=== PATIENT | female | born 1970 | race Caucasian/White ===

== ENCOUNTER 2023-11-30 11:37 | Outpatient (OUT) | payer MEDICARE, SELFPAY ==
[2023-11-30 12:14] LABS: Creatinine Urine Random 53.42 mg/dL (20.00-300.00); Microalbum Creatinine Ratio Ur 273.3 mg/g (0.0-29.9); Microalbumin Urine Random 14.6 mg/dL (<=30.0)
[2023-11-30 12:34] LABS: Basophils Absolute Auto 0.1 10^3/uL (0.0-0.1); Basophils Percent Auto 0.9 % (0.2-2.0); Eosinophils Absolute Auto 0.1 10^3/uL (0.0-0.7); Hematocrit 45.7 % (36.0-48.0); Hemoglobin 15.1 g/dL (12.0-16.0); Immature Granulocytes Abs Auto 0.02 10^3/uL (0.00-0.03); Immature Granulocytes Pct Auto 0.3 % (0.0-0.5); Lymphocytes Absolute Auto 2.5 10^3/uL (1.2-3.8); Mean Corpuscular Hemoglobin 28.1 pg (26.7-34.0); Mean Corpuscular Volume 84.9 fL (81.0-99.0); Mean Platelet Volume 11.4 fL (9.5-13.5); Monocytes Absolute Auto 0.7 10^3/uL (0.3-0.8); Monocytes Percent Auto 9.3 % (1.7-12.0); Neutrophils Absolute Auto 4.2 10^3/uL (1.4-6.5); Neutrophils Percent Auto 55.5 % (43.0-75.0); Platelet Count 336 10^3/uL (150-450); Red Blood Count 5.38 10^6/uL (4.20-5.40); Red Cell Distribution Width 13.6 % (11.0-15.0); White Blood Count 7.6 10^3/uL (4.0-11.0)
[2023-11-30 13:06] LABS: Estimated Average Glucose 292 mg/dL; Glycohemoglobin A1C 11.8 % (4.5-6.2)
[2023-11-30 13:41] LABS: Bilirubin Urine NEGATIVE (NEGATIVE); Blood Urine NEGATIVE (NEGATIVE); Clarity Urine CLOUDY (CLEAR); Color Urine LT. YELLOW (YELLOW); Glucose Urine UA >=1000 mg/dL (NEGATIVE); Ketones Urine TRACE mg/dL (NEGATIVE); Leukocyte Esterase Urine NEGATIVE (NEGATIVE); Nitrite Urine NEGATIVE (NEGATIVE); Protein Urine TRACE mg/dL (NEG/TRACE); Urobilinogen Urine 0.2 EU/dL (0.2-1.0); pH Urine 5.5 (5.0-9.0)
[2023-11-30 13:44] LABS: Alanine Aminotransferase 31 U/L (14-59); Albumin Globulin Ratio 0.8; Albumin Level 3.8 g/dL (3.4-5.0); Alkaline Phosphatase 142 U/L (46-116); Anion Gap 15.5; Aspartate Amino Transferase 13 U/L (15-37); BUN Creatinine Ratio 12.7; Bilirubin Total 0.5 mg/dL (0.2-1.0); Calcium 9.4 mg/dL (8.5-10.1); Carbon Dioxide 24.2 mmol/L (21.0-32.0); Chloride 98 mmol/L (98-107); Chol HDL Ratio 7.5; Cholesterol 415 mg/dL (<=200); Estimated GFR (African America >60 (>=60); Estimated GFR (Non-African Ame >60 (>=60); Globulin 4.5 g/dL; Glucose 335 mg/dL (74-106); HDL Cholesterol 55 mg/dL (40-60); Potassium 3.7 mmol/L (3.5-5.1); Sodium 134 mmol/L (136-145); Thyroid Stimulating Hormone 1.077 uIU/mL (0.358-3.740); Total Protein 8.3 g/dL (6.4-8.2); Triglycerides 237 mg/dL (<=150); VLDL CHOLESTEROL 47.4 mg/dL
[2023-11-30 13:46] LABS: Urine Microscopic Indicated NO
[2023-11-30 14:16] LABS: Free T4 1.16 ng/dL (0.76-1.46)
== END 2023-11-30 11:38 | disposition home or self-care (01) ==
LOC: LAB 11:42
PROVIDERS: PCP Nurse Practitioner; Visit Provider Nurse Practitioner
DX: R53.83 Other fatigue (principal); I10 Essential (primary) hypertension; E66.3 Overweight; R35.89 Other polyuria; R63.1 Polydipsia
CPT/HCPCS: 36415; 80053; 80061; 81003; 82043; 82570; 83036; 84439; 84443; 85025

== ENCOUNTER 2024-05-12 11:03 | Outpatient (OUT) | payer MEDICARE, MEDICAID, SELFPAY ==
--- NOTE | 2024-05-12 | MM_ITS ---
Patient Name: OLEG MARTINEZ MR#: [id number] : 1970 Exam Date: 05/12/2024 Ordering Doctor: MADI Porras CNP RADIOLOGY REPORT PROCEDURE: MM SCREENING MAMMO BI COMPARISON: None. INDICATIONS: SCREENING Calculator Name NCI Breast Cancer Risk Assessment Tool 5 Year Breast Cancer Risk Not Reported. Lifetime Breast Cancer Risk Not Reported. Personal Breast Cancer No Personal Ovarian Cancer No Treatments None Family Cancers None LOCATION: [facility] BREAST COMPOSITION: There are scattered areas of fibroglandular density. FINDINGS: DIAGNOSTIC CATEGORY 1--NEGATIVE. NO CHANGE FROM COMPARISON ASSESSMENT. Scattered benign-appearing calcifications are present. RIGHT BREAST: No significant suspicious finding. LEFT BREAST: No significant suspicious finding. RECOMMENDATIONS: ROUTINE MAMMOGRAM AND CLINICAL EVALUATION IN 12 MONTHS. PLEASE NOTE: A NORMAL MAMMOGRAM DOES NOT EXCLUDE THE POSSIBILITY OF BREAST CANCER. A CLINICALLY SUSPICIOUS PALPABLE LUMP SHOULD BE BIOPSIED. Dictated by: Jose Delcid MD on 05/12/2024 at 13:12 Approved by: Jose Delcid MD on 05/12/2024 at 13:13
[2024-05-12 12:10] LABS: Estimated Average Glucose 120 mg/dL; Glycohemoglobin A1C 5.8 % (4.5-6.2)
[2024-05-12 12:20] LABS: Alanine Aminotransferase 33 U/L (14-59); Albumin Level 4.1 g/dL (3.4-5.0); Alkaline Phosphatase 106 U/L (46-116); Anion Gap 11.5; Aspartate Amino Transferase 18 U/L (15-37); BUN Creatinine Ratio 14.5; Bilirubin Total 0.4 mg/dL (0.2-1.0); Calcium 9.3 mg/dL (8.5-10.1); Carbon Dioxide 28.5 mmol/L (21.0-32.0); Chloride 100 mmol/L (98-107); Chol HDL Ratio 2.9; Cholesterol 178 mg/dL (<=200); Estimated GFR (African America >60 (>=60); Estimated GFR (Non-African Ame >60 (>=60); Globulin 4.2 g/dL; Glucose 121 mg/dL (74-106); HDL Cholesterol 61 mg/dL (40-60); Sodium 136 mmol/L (136-145); Total Protein 8.3 g/dL (6.4-8.2); Triglycerides 81 mg/dL (<=150); VLDL CHOLESTEROL 16.2 mg/dL
== END 2024-05-12 11:04 | disposition home or self-care (01) ==
LOC: MAMMO 11:06
PROVIDERS: PCP Nurse Practitioner; Visit Provider Nurse Practitioner
DX: Z12.31 Encounter for screening mammogram for malignant neoplasm of breast (principal); E78.2 Mixed hyperlipidemia; I10 Essential (primary) hypertension
CPT/HCPCS: 36415; 77067; 80053; 80061; 83036

== ENCOUNTER 2024-11-02 16:03 | Outpatient (OUT) | payer MEDICARE, MEDICAID, SELFPAY ==
--- OUTSIDE RECORDS SUMMARY | 2024-11-02 16:10 | XMS_ITS | CCD ---
Author Organization [facility] Care Team Providers Care Field Training Manager Name Role Phone Chiquita COAT HANGER SHAPER MACHINE OPERATOR, Cecelia Unavailable Ruben Ramirez MD Primary Care Provider AICHMARILIA, CECELIA Attending Unavailable AICHHOLZ, CECELIA Attending Unavailable AICHHOLZ, CECELIA Attending Unavailable AICHHOLZ, CECELIA Attending Unavailable AICHHOLZ, CECELIA Attending Unavailable AICHHOLZ, CECELIA Attending Unavailable Medications Current Medications Medication Drug Class(es) Dates Sig (Normalized) Sig (Original) atorvastatin 20 mg oral tablet (18 sources) HMG-CoA Reductase Inhibitor Start: 02-13-2024 End: 11-08-2024 take 1 tablet by mouth at bedtime atorvastatin (Lipitor) 20 MG tablet Indications: Type 2 diabetes mellitus without complication, without long-term current use of insulin (CMS/HCC) , Mixed hyperlipidemia (CMS/HCC) Take 1 tablet (20 mg) by mouth at bedtime 30 tablet 04/20/2024 05/20/2024 Active Continuous Glucose Pipeline Executive (Dexcom G7 Pipeline Executive) device (14 sources) Start: 01-07-2024 Continuous Glucose Pipeline Executive (Dexcom G7 Pipeline Executive) device Indications: Type 2 diabetes mellitus without complication, without long-term current use of insulin (CMS/HCC) 1 each Daily 1 each 1 01/07/2024 Active Continuous Glucose Sensor (Dexcom G7 Sensor) misc (16 sources) Start: 08-10-2024 Continuous Glucose Sensor (Dexcom G7 Sensor) misc Indications: Type 2 diabetes mellitus without complication, without long-term current use of insulin (CMS/HCC) 1 each Daily 3 each 11 08/10/2024 Active Start: 01-07-2024 End: 08-10-2024 Continuous Glucose Sensor (D excom G7 Sensor) misc Indications: Type 2 diabetes mellitus without complication, without long-term current use of insulin (CMS/HCC) 1 each Daily 3 each 11 01/07/2024 08/10/2024 Discontinued (Reorder) Start: 01-07-2024 Continuous Glu cose Sensor [place]Dexcom G7 Sensor[place] [facility] [place]: Type 2 diabetes mellitus without complication, without long-term current use of insulin (CMS/HCC) 1 each Daily 3 each 01/07/2024 Active losartan potassium 50 mg oral tablet (17 sources) Angiotensin 2 Receptor Juan Start: 04-20-2024 End: 11-08-2024 take 1 tablet by mouth once daily losartan (Cozaar) 50 MG tablet Indications: Primary hypertension (CMS/HCC) Take 1 tablet (50 mg) by mouth Daily 90 tablet 04/23/2024 07/22/2024 Active metFORMIN hydrochloride 1000 mg oral tablet (16 sources) Biguanide Start: 08-10-2024 End: 11-08-2024 take 1 tablet by mouth in the morning metFORMIN (Glucophage) 1000 MG tablet Indications: Type 2 diabetes mellitus without complication, without long-term current use of insulin (CMS/HCC) Take 1 tablet (1,000 mg) by mouth in the morning and 1 tablet (1,000 mg) in the evening. Take with meals. 180 tablet 1 08/10/2024 11/08/2024 Active Start: 01-07-2024 End: 08-10-2024 take 2 tablets by mouth in the morning metFORMIN (Glucophage) 500 MG tablet Indications: Type 2 diabetes mellitus without complication, without long-term current use of insulin (CMS/HCC) Take 2 tablets (1,000 mg) by mouth in the morning and 2 tablets (1,000 mg) in the evening. Take with meals. 360 tablet 04/20/2024 07/19/2024 Active Completed/Discontinued Medications Medication Drug Class(es) Dates Sig (Normalized) Sig (Original) dapagliflozin 5 mg oral tablet (17 sources) Sodium-Glucose Cotransporter 2 Inhibitor Start: 04-20-2024 End: 11-08-2024 take 1 tablet by mouth once daily dapagliflozin (Farxiga) 5 MG Indications: Type 2 diabetes mellitus without complication, without long-term current use of insulin (CMS/HCC) Take 1 tablet (5 mg) by mouth Daily 90 tablet 1 07/24/2024 08/10/2024 Discontinued (Reorder) Problems Active Problems Problem Classification Problem Date Documented Da te Episodic/Chronic Diabetes mellitus without complication (20 sources) Type 2 diabetes mellitus without complication; Translations: [Type 2 diabetes mellitus without complications] Onset: 12-04-2023 07-07-2024 Chronic Disorders of lipid metabolism (19 sources) Mixed hyperlipidemia; Translations: [Mixed hyperlipidemia] Onset: 12-04-2023 07-07-2024 Chronic Essential hypertension (20 sources) Essential hypertension; Translations: [Essential (primary) hypertension] Onset: 10-30-2023 10-30-2023 Chronic Other nutritional; endocrine; and metabolic disorders (18 sources) Body mass index 25-29 - overweight; Translations: [Overweight] Onset: 10-30-2023 10-30-2023 Episodic Past or Other Problems Problem Classification Problem Date Documented Da te Episodic/Chronic Genitourinary symptoms and ill-defined conditions (14 sources) Polyuria; Translations: [Polyuria] Onset: 10-30-2023 Resolved: 08-10-2024 10-30-2023 Episodic Malaise and fatigue (14 sources) Fatigue; Translations: [Other fatigue] Onset: 10-30-2023 Resolved: 08-10-2024 10-30-2023 Episodic Mood disorders (14 sources) Mood disorders Onset: 02-18-2024 02-18-2024 Other nutritional; endocrine; and metabolic disorders (14 sources) Excessive thirst; Translations: [Polydipsia] Onset: 10-30-2023 Resolved: 08-10-2024 10-30-2023 Episodic Other screening for suspected conditions (not mental disorders or infectious disease) (20 sources) Patient encounter status; Translations: [Encounter for screening mammogram for malignant neoplasm of breast] Onset: 12-04-2023 12-04-2023 Episodic Results Test Name Value Interpretation Reference Range Facil ity MLR HEMOGLOBIN A1Con 17-2 024 Glucose [Mass/Vol] 120 mg/dL [facility] HbA1c (Bld) [Mass fraction] 5.8 % 4.5 - 6.2 % [facility] Comment on above: ADA RECOMMENDED LIMI T 4.0 - 6.0 ADA THERAPEUTIC TARGET < 7.0 ACTION SUGGESTED > 7.0 [facility] Vital Signs Date Time Vital Sign Value Performing Clinician Faci lity 08-10-2024 15:23-0500 Body height 164.5 cm Cecelia Bonez COAT HANGER SHAPER MACHINE OPERATOR Work Phone: [facility] 08-10-2024 15:23-0500 Body mass index (BMI) [Ratio] 25.52 kg/m2 Cecelia Bonitahholz COAT HANGER SHAPER MACHINE OPERATOR Work Phone: [facility] 08-10-2024 15:23-0500 Body temperature 97.81 [degF] Cecelia Bonitahholz COAT HANGER SHAPER MACHINE OPERATOR Work Phone: [facility] 08-10-2024 15:23-0500 Body weight 69.04 kg Cecelia Bonitahholz COAT HANGER SHAPER MACHINE OPERATOR Work Phone: [facility] 08-10-2024 15:23-0500 Diastolic blood pressure 88 mm[Hg] Cecelia Bonitahholz COAT HANGER SHAPER MACHINE OPERATOR Work Phone: [facility] 08-10-2024 15:23-0500 Heart rate 96 /min Cecelia Bonitahholz COAT HANGER SHAPER MACHINE OPERATOR Work Phone: [facility] 08-10-2024 15:23-0500 Respiratory rate 18 /min Cecelia Aichholz COAT HANGER SHAPER MACHINE OPERATOR Work Phone: [facility] 08-10-2024 15:23-0500 SaO2% (BldA) [Mass fraction] 97 % Cecelia Bonitahholz COAT HANGER SHAPER MACHINE OPERATOR Work Phone: [facility] 08-10-2024 15:23-0500 Systolic blood pressure 110 mm[Hg] Cecelia Gonzalezholz COAT HANGER SHAPER MACHINE OPERATOR Work Phone: [facility] 05-19-2024 14:39-0400 Body height 164.5 cm Cecelia Bonitahholz COAT HANGER SHAPER MACHINE OPERATOR Work Phone: [facility] 05-19-2024 14:39-0400 Body mass index (BMI) [Ratio] 26.29 kg/m2 Cecelia Bonitahholz COAT HANGER SHAPER MACHINE OPERATOR Work Phone: [facility] 05-19-2024 14:39-0400 Body temperature 98.1 [degF] Cecelia Bonitahholz COAT HANGER SHAPER MACHINE OPERATOR Work Phone: [facility] 05-19-2024 14:39-0400 Body weight 71.12 kg Cecelia Aichholz COAT HANGER SHAPER MACHINE OPERATOR Work Phone: [facility] 05-19-2024 14:39-0400 Diastolic blood pressure 80 mm[Hg] Cecelia Aichholz COAT HANGER SHAPER MACHINE OPERATOR Work Phone: [facility] 05-19-2024 14:39-0400 Heart rate 100 /min Cecelia Aichholz COAT HANGER SHAPER MACHINE OPERATOR Work Phone: [facility] 05-19-2024 14:39-0400 Respiratory rate 18 /min Cecelia Aichholz COAT HANGER SHAPER MACHINE OPERATOR Work Phone: [facility] 05-19-2024 14:39-0400 SaO2% (BldA) [Mass fraction] 96 % Cecelia Aichholz COAT HANGER SHAPER MACHINE OPERATOR Work Phone: [facility] 05-19-2024 14:39-0400 Systolic blood pressure 132 mm[Hg] Cecelia Aichholz COAT HANGER SHAPER MACHINE OPERATOR Work Phone: [facility] Healthcare Encounters Encounter Date Encounter Type Care Provider Facility Start: 08-10-2024 End: 08-10-2024 Office outpatient visit 25 minutes Cecelia Bonitahholz COAT HANGER SHAPER MACHINE OPERATOR Work Phone: [facility] Comment on above: Type 2 diabetes evan itus without complication, without long- term current use of insulin ([facility]) (Primary Dx); Primary hypertension ([facility]); Overweight (BMI 25.0-29.9); Mixed hyperlipidemia ([facility]/HCC) Start: 08-10-2024 End: 08-10-2024 ambulatory CECELIA AICHHOLZ Not Available Start: 08-10-2024 End: 08-10-2024 Bamboo flowsheet Cecelia Aichholz COAT HANGER SHAPER MACHINE OPERATOR Work Phone: [facility] Start: 08-10-2024 End: 08-10-2024 Bamboo flowsheet Cecelia Aichholz COAT HANGER SHAPER MACHINE OPERATOR Work Phone: [facility] Start: 07-23-2024 End: 07-24-2024 Refill Cecelia Aichholz COAT HANGER SHAPER MACHINE OPERATOR Work Phone: [facility] Comment on above: Type 2 diabetes evan itus without complication, without long- term current use of insulin (CMS/HCC) Start: 07-07-2024 End: 07-07-2024 Refill Samantha Luis Felipe PATEL [facility] Comment on above: Type 2 diabetes evan itus without complication, without long- term current use of insulin (CMS/HCC); Mixed hyperlipidemia ([facility]/HCC) Start: 05-25-2024 End: 05-25-2024 Refill Cecelia Aichholz COAT HANGER SHAPER MACHINE OPERATOR Work Phone: [facility] Comment on above: Type 2 diabetes evan itus without complication, without long- term current use of insulin ([facility]); Mixed hyperlipidemia ([facility]) Start: 05-19-2024 End: 05-19-2024 Office outpatient visit 25 minutes Cecelia Aichholz COAT HANGER SHAPER MACHINE OPERATOR Work Phone: [facility] Comment on above: Type 2 diabetes evan itus without complication, without long- term current use of insulin ([facility]) (Primary Dx); Overweight (BMI 25.0-29.9); Primary hypertension ([facility]) Start: 05-19-2024 End: 05-19-2024 ambulatory CECELIA AICHHOLZ Not Available Start: 05-19-2024 End: 05-19-2024 Bamboo flowsheet Cecelia Aichholz COAT HANGER SHAPER MACHINE OPERATOR Work Phone: [facility] Start: 05-19-2024 End: 05-19-2024 Bamboo flowsheet Cecelia Aichholz COAT HANGER SHAPER MACHINE OPERATOR Work Phone: [facility] Start: 05-12-2024 End: 05-12-2024 Clinisync Result Encounter Cecelia Aichholz COAT HANGER SHAPER MACHINE OPERATOR Work Phone: [facility] External Department Unsolicited Start: 05-12-2024 End: 05-12-2024 Clinisync Result Encounter Cecelia Aichholz COAT HANGER SHAPER MACHINE OPERATOR Work Phone: [facility] External Department Unsolicited Start: 04-23-2024 End: 04-23-2024 Refill Cecelia Aichholz COAT HANGER SHAPER MACHINE OPERATOR Work Phone: [facility] Comment on above: Primary hypertension (CMS/HCC) Start: 04-20-2024 End: 04-20-2024 Refill Cecelia Aichholz COAT HANGER SHAPER MACHINE OPERATOR Work Phone: [facility] Comment on above: Type 2 diabetes evan itus without complication, without long- term current use of insulin ([facility]/HCC); Mixed hyperlipidemia ([facility]/HCC) Start: 04-20-2024 End: 04-20-2024 Refill Cecelia Aichholz COAT HANGER SHAPER MACHINE OPERATOR Work Phone: [facility] Comment on above: Type 2 diabetes evan itus without complication, without long- term current use of insulin ([facility]/HCC) Start: 04-18-2024 End: 04-20-2024 Refill Cecelia Aichholz COAT HANGER SHAPER MACHINE OPERATOR Work Phone: [facility] Comment on above: Primary hypertension ([facility]/HCC); Type 2 diabetes mellitus without complication, without long-term current use of insulin ([facility]) Start: 02-18-2024 Patient encounter procedure Cecelia Aichholz COAT HANGER SHAPER MACHINE OPERATOR Work Phone: [facility] Start: 02-18-2024 End: 02-18-2024 ambulatory CECELIA AICHHOLZ Not Available Start: 01-07-2024 End: 01-07-2024 ambulatory CECELIA AICHHOLZ Not Available Start: 12-04-2023 End: 12-04-2023 ambulatory CECELIA AICHHOLZ Not Available Start: 10-30-2023 End: 10-30-2023 ambulatory CECELIA AICHHOLZ Not Available Procedures Date Procedure Procedure Detail Performing Clinician Start: 05-12-2024 MLR HEMOGLOBIN A1C Cecelia Aichholz COAT HANGER SHAPER MACHINE OPERATOR Work Phone: Start: 05-12-2024 Mammography Cecelia Aichh olz COAT HANGER SHAPER MACHINE OPERATOR Work Phone: Plan of Treatment Date Care Activity Detail Author Start: 03-08-2027 Screening for malign ant neoplasm of colon [facility] Start: 05-12-2025 Screening for malign ant neoplasm of breast Mammogram [facility] Start: 02-17-2025 Medicare Annual Well ness (AWV) Medicare Annual Wellness (AWV) [facility] Start: 11-29-2024 Urine screening for protein Diabetes: Urine Protein Screening [facility] Start: 08-10-2024 End: 08-10-2024 Patient encounter procedure [facility] Comment on above: Primary hypertension ([facility]) (Primary Dx); Overweight (BMI 25.0-29.9); Type 2 diabetes mellitus without complication, without long-term current use of insulin ([facility]/HCC) Start: 08-10-2024 End: 08-10-2025 Hemoglobin A1c/Hemoglobin.total in Blood Hemoglobin A1c Lab Routine Type 2 diabetes mellitus without complication, without long-term current use of insulin ([facility]) Expected: 08/10/2024 (Approximate), Expires: 08/10/2025 [facility] Work Phone: Comment on above: Expected: 08/10/2024 (Approximate), Expires: 08/10/2025 Start: 05-19-2024 End: 05-19-2024 [facility] Comment on above: Arrived Start: 2008 Screening for malign ant neoplasm of breast Mammogram [facility] Start: 1998 Screening for malign ant neoplasm of cervix [facility] Start: 1989 Screening for malign ant neoplasm of cervix Pap Smear [facility] Start: 1978 Glaucoma screening Diabetes: R etinopathy Screening [facility] Start: 1968 Hemoglobin A1c measurement Diabetes: Hemoglobin A1C [facility] Start: 1968 Screening for malign ant neoplasm of colon [facility] Payers Date Payer Category Payer Medicaid [id number] 2023 Medicaid [id number] 2023 Medicare [id number] 2023 Medicare [id number] 1968 Unknown [id number] 1968 Unknown [id number] 1968 Unknown [id number] 1968 Unknown [id number] 1968 Unknown [id number] Social History Date Type Detail Facility Start: 10-30-2023 Tobacco smoking stat [facility] Never smoked tobacco [facility] Start: 10-30-2023 Tobacco use and exposure Smoke less tobacco non-user [facility] Start: 02-18-2024 End: 05-19-2024 Alcoholic beverage intake Lifetime non-drinker (finding) [facility] Start: 02-18-2024 End: 05-19-2024 History of Social function [facility] Start: 02-18-2024 End: 05-19-2024 Tobacco use panel [facility] Start: 10-21-2023 Alcohol Comment caffine: 2 cups michelle y [facility] Start: 1970 [place] assigned at Not on file [place] [facility] Clinical Notes 05-19-2024 to 08-10-2024 Cecelia Porras NP - 08/10/2024 3:00 PM Elizabeth Porras NP - 08/10/2024 7:43 AM ESTCecelia Porras NP - 08/10/2024 7:42 AM ESTPatient Pawan Porras NP - 05/19/2024 3:11 PM EDT Note Date & Type Note Facility 08-10-2024 History of Presen t illness Narrative Images from the original note were not included. Oleg Martinez is a 53 y.o. female presents with chief complaint of Diabetes HPI: Diabetes She presents for her follow-up diabetic visit. She has type 2 diabetes mellitus. Her disease course has been stable. There are no hypoglycemic associated symptoms. Pertinent negatives for hypoglycemia include no dizziness, headaches, nervousness/anxiousness, seizures or tremors. Pertinent negatives for diabetes include no blurred vision, no chest pain, no fatigue, no foot paresthesias, no polydipsia, no polyphagia, no polyuria, no visual change and no weight loss. There are no hypoglycemic complications. Symptoms are improving. There are no diabetic complications. Pertinent negatives for diabetic complications include no CVA, PVD or retinopathy. Risk factors for coronary artery disease include diabetes mellitus, dyslipidemia, obesity, hypertension and sedentary lifestyle. Current diabetic treatment includes oral agent (dual therapy). She is compliant with treatment all of the time. Her weight is stable. Her overall blood glucose range is 110-130 mg/dl. An SEB inhibitor/angiotensin II receptor juan is being taken. She does not see a race relations adviser.Eye exam is not current. Hypertension This is a chronic problem. The current episode started more than 1 year ago. The problem is unchanged. The problem is controlled. Pertinent negatives include no blurred vision, chest pain, headaches, palpitations, peripheral edema or shortness of breath. There are no associated agents to hypertension. Risk factors for coronary artery disease include diabetes mellitus and sedentary lifestyle. Past treatments include angiotensin blockers. The current treatment provides significant improvement. There are no compliance problems. There is no history of angina, kidney disease, CAD/NV, CVA, heart failure, left ventricular hypertrophy, PVD or retinopathy. SUBJECTIVE: MEDICATIONS: Current Outpatient Medications Medication Instructions atorvastatin (LIPITOR) 20 mg, Oral, Nightly Continuous Glucose Pipeline Executive (Dexcom G7 Pipeline Executive) device 1 each, Does not apply, Daily Continuous Glucose Sensor (Dexcom G7 Sensor) misc 1 each, Does not apply, Daily dapagliflozin (FARXIGA) 5 mg, Oral, Daily losartan (COZAAR) 50 mg, Oral, Daily metFORMIN (GLUCOPHAGE) 1,000 mg, Oral, 2 times daily with meals ALLERGIES: No Known Allergies REVIEW OF SYMPTOMS: Review of Systems Constitutional: Negative for appetite change, chills, fatigue, fever and weight loss. HENT: Negative for congestion, ear pain and sore throat. Eyes: Negative for blurred vision, pain, discharge, redness and visual disturbance. Respiratory: Negative for cough, shortness of breath and wheezing. Cardiovascular: Negative for chest pain, palpitations and leg swelling. Gastrointestinal: Negative for abdominal pain, blood in stool, constipation, diarrhea, nausea and vomiting. Genitourinary: Negative for difficulty urinating, dysuria and frequency. Musculoskeletal: Negative for arthralgias, back pain, joint swelling and myalgias. Skin: Negative for rash and wound. Neurological: Negative for dizziness, tremors, seizures, syncope and headaches. Psychiatric/Behavioral: Negative for behavioral problems, self-injury and suicidal ideas. The patient is not nervous/anxious. Hematological: Does not bruise/bleed easily. Endocrine: Negative for polydipsia, polyphagia and polyuria. Allergic/Immunologic: Negative for environmental allergies and food allergies. PAST MEDICAL HISTORY Past Medical History: Diagnosis Date Frequent headaches History reviewed. No pertinent surgical history. family history includes Diabetes in her maternal grandmother and mother; Heart disease in her mother; Hypertension in her maternal grandmother and mother. OBJECTIVE: Visit Vitals BP 110/88 (BP Location: Left arm, Patient Position: Sitting, BP Cuff Size: Adult long) Pulse 96 Temp 97.8 F (Temporal) Resp 18 Ht 5' 4.75 Wt 152 lb 3.2 oz SpO2 97% BMI 25.52 kg/m Smoking Status Never BSA 1.78 m Physical Exam Vitals and nursing note reviewed. Constitutional: General: She is not in acute distress. Appearance: Normal appearance. HENT: Head: Normocephalic and atraumatic. Right Ear: External ear normal. Left Ear: External ear normal. Nose: Nose normal. Mouth/Throat: Mouth: Mucous membranes are moist. Eyes: Extraocular Movements: Extraocular movements intact. Conjunctiva/sclera: Conjunctivae normal. Neck: Vascular: No carotid bruit. Cardiovascular: Rate and Rhythm: Normal rate and regular rhythm. Pulses: Normal pulses. Heart sounds: Normal heart sounds. Pulmonary: Effort: Pulmonary effort is normal. Breath sounds: Normal breath sounds. Abdominal: General: Bowel sounds are normal. There is no distension. Palpations: Abdomen is soft. There is no mass. Tenderness: There is no abdominal tenderness. Musculoskeletal: General: Normal range of motion. Cervical back: Normal range of motion and neck supple. Right lower leg: No edema. Left lower leg: No edema. Skin: General: Skin is warm and dry. Capillary Refill: Capillary refill takes 2 to 3 seconds. Findings: No rash. Neurological: General: No focal deficit present. Mental Status: She is alert and oriented to person, place, and time. Psychiatric: Mood and Affect: Mood normal. Behavior: Behavior normal. Thought Content: Thought content normal. Judgment: Judgment normal. ASSESSMENT AND PLAN: Follow up in about 3 months (around 11/08/2024) for Recheck. Problem List Items Addressed This Visit Primary hypertension ([facility]) Please check blood pressure daily and record DASH diet Limit caffeine Take medication as directed Contact office if chest pain, pressure, dizziness, shortness of breath, swelling legs Recommend slow position changes Current med: arb Relevant Medications losartan (Cozaar) 50 MG tablet Overweight (BMI 25.0-29.9) Type 2 diabetes mellitus without complication, without long-term current use of insulin ([facility]) - Primary Check blood sugars daily, notify if <70 or >200. Take medications (pills or insulin) as directed. Monitor for s/s of hypoglycemia (sweaty, dizziness, nausea, vomiting, or shakiness). Watch for increase in thirst, urination, or appetite. Inspect feet frequently monitoring for open wounds , and also recommend yearly eye exam. Pt should attempt to remain as physically active as chronic conditions allow, as well as trying to follow a diet low in carbohydrates, and simple sugars. Current meds: statin, arb, farxiga and metformin A1c order given Occ low sugar: range high 60's, usually during eating dinner time-likely related to inaccuracy in sensor Relevant Medications atorvastatin (Lipitor) 20 MG tablet Continuous Glucose Sensor (Dexcom G7 Sensor) misc dapagliflozin (Farxiga) 5 MG metFORMIN (Glucophage) 1000 MG tablet Other Relevant Orders Hemoglobin A1c Mixed hyperlipidemia ([facility]) Relevant Medications atorvastatin (Lipitor) 20 MG tablet Associated Problem(s): Type 2 diabetes mellitus without complication, without long-term current use of insulin ([facility]) Check blood sugars daily, notify if <70 or >200. Take medications (pills or insulin) as directed. Monitor for s/s of hypoglycemia (sweaty, dizziness, nausea, vomiting, or shakiness). Watch for increase in thirst, urination, or appetite. Inspect feet frequently monitoring for open wounds , and also recommend yearly eye exam. Pt should attempt to remain as physically active as chronic conditions allow, as well as trying to follow a diet low in carbohydrates, and simple sugars. Current meds: statin, arb, farxiga and metformin A1c order given Occ low sugar: range high 60's, usually during eating dinner time-??true reading?? Associated Problem(s): Primary hypertension (CMS/HCC) Please check blood pressure daily and record DASH diet Limit caffeine Take medication as directed Contact office if chest pain, pressure, dizziness, shortness of breath, swelling legs Recommend slow position changes Current med: arb documented in this encounter [facility] 08-10-2024 Instructions Cecelia Porras NP - 08/10/2024 3:00 PM EST Diabetes: check labs after 08/14/24, I changed her metformin to 1000mg tablets: she will take 1 pill twice a day, no longer 2 (500mg pills) twice a day Check insurance: farxiga 5mg daily or change to Jardiance 10mg: see what your co pay is for these for 2024 Also check with DM about the sensors: are they running this under DME, does that make a difference as far as the cost?? Also schedule eye exam as well documented in this encounter [facility] 05-19-2024 History of Presen t illness Narrative Associated Problem(s): Primary hypertension (CMS/HCC) At goal with meds and continued weight loss as well Associated Problem(s): Type 2 diabetes mellitus without complication, without long-term current use of insulin ([facility]) Great reduction in A1c test, at goal No med dose changes Continue with dietary changes, needs to schedule an eye exam Fu in 3 months 121 average for last month Images from the original note were not included. Oleg Martinez is a 53 y.o. female presents with chief complaint of No chief complaint on file. HPI: Diabetes She presents for her follow-up diabetic visit. She has type 2 diabetes mellitus. Her disease course has been improving. There are no hypoglycemic associated symptoms. Pertinent negatives for hypoglycemia include no dizziness, headaches, nervousness/anxiousness, seizures or tremors. There are no diabetic associated symptoms. Pertinent negatives for diabetes include no blurred vision, no chest pain, no foot paresthesias, no foot ulcerations, no polydipsia, no polyphagia and no polyuria. There are no hypoglycemic complications. Symptoms are stable. There are no diabetic complications. Risk factors for coronary artery disease include diabetes mellitus, obesity and sedentary lifestyle. Current diabetic treatment includes oral agent (dual therapy). She is compliant with treatment all of the time. An SEB inhibitor/angiotensin II receptor juan is being taken. She does not see a race relations adviser.Eye exam is not current. Hypertension This is a chronic problem. The problem is unchanged. The problem is controlled. Pertinent negatives include no blurred vision, chest pain, headaches, palpitations or shortness of breath. There are no associated agents to hypertension. Risk factors for coronary artery disease include diabetes mellitus, obesity and sedentary lifestyle. Past treatments include angiotensin blockers. The current treatment provides significant improvement. There are no compliance problems. SUBJECTIVE: MEDICATIONS: Current Outpatient Medications Medication Instructions atorvastatin (LIPITOR) 20 mg, Oral, Nightly Continuous Glucose Pipeline Executive (Dexcom G7 Pipeline Executive) device 1 each, Does not apply, Daily Continuous Glucose Sensor (Dexcom G7 Sensor) misc 1 each, Does not apply, Daily dapagliflozin (FARXIGA) 5 mg, Oral, Daily losartan (COZAAR) 50 mg, Oral, Daily metFORMIN (GLUCOPHAGE) 1,000 mg, Oral, 2 times daily with meals ALLERGIES: No Known Allergies REVIEW OF SYMPTOMS: Review of Systems Constitutional: Negative for appetite change, chills and fever. HENT: Negative for congestion, ear pain and sore throat. Eyes: Negative for blurred vision, pain, discharge, redness and visual disturbance. Respiratory: Negative for cough, shortness of breath and wheezing. Cardiovascular: Negative for chest pain, palpitations and leg swelling. Gastrointestinal: Negative for abdominal pain, blood in stool, constipation, diarrhea, nausea and vomiting. Genitourinary: Negative for difficulty urinating, dysuria and frequency. Musculoskeletal: Negative for arthralgias, back pain, joint swelling and myalgias. Skin: Negative for rash and wound. Neurological: Negative for dizziness, tremors, seizures, syncope and headaches. Psychiatric/Behavioral: Negative for behavioral problems, self-injury and suicidal ideas. The patient is not nervous/anxious. Hematological: Does not bruise/bleed easily. Endocrine: Negative for polydipsia, polyphagia and polyuria. Allergic/Immunologic: Negative for environmental allergies and food allergies. PAST MEDICAL HISTORY Past Medical History: Diagnosis Date Frequent headaches History reviewed. No pertinent surgical history. family history includes Diabetes in her maternal grandmother and mother; Heart disease in her mother; Hypertension in her maternal grandmother and mother. OBJECTIVE: Visit Vitals BP 132/80 (BP Location: Left arm, Patient Position: Sitting, BP Cuff Size: Adult long) Pulse 100 Temp 98.1 F (Temporal) Resp 18 Ht 5' 4.75 Wt 156 lb 12.8 oz SpO2 96% BMI 26.29 kg/m Smoking Status Never BSA 1.8 m Physical Exam Vitals and nursing note reviewed. Constitutional: General: She is not in acute distress. Appearance: Normal appearance. HENT: Head: Normocephalic and atraumatic. Right Ear: External ear normal. Left Ear: External ear normal. Nose: Nose normal. Mouth/Throat: Mouth: Mucous membranes are moist. Eyes: Extraocular Movements: Extraocular movements intact. Conjunctiva/sclera: Conjunctivae normal. Neck: Vascular: No carotid bruit. Cardiovascular: Rate and Rhythm: Normal rate and regular rhythm. Pulses: Normal pulses. Heart sounds: Normal heart sounds. Pulmonary: Effort: Pulmonary effort is normal. Breath sounds: Normal breath sounds. Abdominal: General: Bowel sounds are normal. There is no distension. Palpations: Abdomen is soft. There is no mass. Tenderness: There is no abdominal tenderness. Musculoskeletal: General: Normal range of motion. Cervical back: Normal range of motion and neck supple. Right lower leg: No edema. Left lower leg: No edema. Lymphadenopathy: Cervical: No cervical adenopathy. Skin: General: Skin is warm and dry. Capillary Refill: Capillary refill takes 2 to 3 seconds. Findings: No rash. Neurological: General: No focal deficit present. Mental Status: She is alert and oriented to person, place, and time. Psychiatric: Mood and Affect: Mood normal. Behavior: Behavior normal. Thought Content: Thought content normal. Judgment: Judgment normal. ASSESSMENT AND PLAN: No follow-ups on file. Problem List Items Addressed This Visit Primary hypertension (CMS/HCC) At goal with meds and continued weight loss as well Overweight (BMI 25.0-29.9) Type 2 diabetes mellitus without complication, without long-term current use of insulin (CMS/HCC) - Primary Great reduction in A1c test, at goal No med dose changes Continue with dietary changes, needs to schedule an eye exam Fu in 3 months documented in this encounter [facility] Healthcare Evaluation note Diagnosis Primary hypertension (CMS/HCC)- Primary Unspecified essential hypertension Polyuria Polydipsia Overweight (BMI 25.0-29.9) Overweight Other fatigue Type 2 diabetes mellitus without complication, without long-term current use of insulin (CMS/HCC)- Primary Encounter for screening mammogram for malignant neoplasm of breast Overweight (BMI 25.0-29.9) Overweight Primary hypertension (CMS/HCC) Unspecified essential hypertension Mixed hyperlipidemia (CMS/HCC) Mixed hyperlipidemia Primary hypertension (CMS/HCC)- Primary Unspecified essential hypertension Type 2 diabetes mellitus without complication, without long-term current use of insulin (CMS/HCC) Overweight (BMI 25.0-29.9) Overweight Encounter for subsequent annual wellness visit (AWV) in Medicare patient- Primary Primary hypertension (CMS/HCC) Unspecified essential hypertension Mixed hyperlipidemia (CMS/HCC) Mixed hyperlipidemia Type 2 diabetes mellitus without complication, without long-term current use of insulin (CMS/HCC) Overweight (BMI 25.0-29.9) Overweight Screening for colon cancer Special screening for malignant neoplasms, colon Routine general medical examination at health care facility Routine general medical examination at a [facility] care facility Type 2 diabetes mellitus without complication, without long-term current use of insulin (CMS/HCC)- Primary Overweight (BMI 25.0-29.9) Overweight Primary hypertension (CMS/HCC) Unspecified essential hypertension Type 2 diabetes mellitus without complication, without long-term current use of insulin (CMS/HCC) Mixed hyperlipidemia (CMS/HCC) Mixed hyperlipidemia documented in this encounter [facility] HealthcareEvaluation note* Diagnosis Primary hypertension (CMS/HCC)- Primary Unspecified essential hypertension Polyuria Polydipsia Overweight (BMI 25.0-29.9) Overweight Other fatigue Type 2 diabetes mellitus without complication, without long-term current use of insulin (CMS/HCC)- Primary Encounter for screening mammogram for malignant neoplasm of breast Overweight (BMI 25.0-29.9) Overweight Primary hypertension (CMS/HCC) Unspecified essential hypertension Mixed hyperlipidemia (CMS/HCC) Mixed hyperlipidemia Primary hypertension (CMS/HCC)- Primary Unspecified essential hypertension Type 2 diabetes mellitus without complication, without long-term current use of insulin (CMS/HCC) Overweight (BMI 25.0-29.9) Overweight Encounter for subsequent annual wellness visit (AWV) in Medicare patient- Primary Primary hypertension (CMS/HCC) Unspecified essential hypertension Mixed hyperlipidemia (CMS/HCC) Mixed hyperlipidemia Type 2 diabetes mellitus without complication, without long-term current use of insulin (CMS/HCC) Overweight (BMI 25.0-29.9) Overweight Screening for colon cancer Special screening for malignant neoplasms, colon Routine general medical examination at health care facility Routine general medical examination at a [facility] care facility Type 2 diabetes mellitus without complication, without long-term current use of insulin (CMS/HCC)- Primary Overweight (BMI 25.0-29.9) Overweight Primary hypertension (CMS/HCC) Unspecified essential hypertension Type 2 diabetes mellitus without complication, without long-term current use of insulin (CMS/HCC) documented in this encounter [facility] HealthcareEvaluation note* Diagnosis Primary hypertension (CMS/HCC)- Primary Unspecified essential hypertension Polyuria Polydipsia Overweight (BMI 25.0-29.9) Overweight Other fatigue Type 2 diabetes mellitus without complication, without long-term current use of insulin (CMS/HCC)- Primary Encounter for screening mammogram for malignant neoplasm of breast Overweight (BMI 25.0-29.9) Overweight Primary hypertension (CMS/HCC) Unspecified essential hypertension Mixed hyperlipidemia (CMS/HCC) Mixed hyperlipidemia Primary hypertension (CMS/HCC)- Primary Unspecified essential hypertension Type 2 diabetes mellitus without complication, without long-term current use of insulin (CMS/HCC) Overweight (BMI 25.0-29.9) Overweight Encounter for subsequent annual wellness visit (AWV) in Medicare patient- Primary Primary hypertension (CMS/HCC) Unspecified essential hypertension Mixed hyperlipidemia (CMS/HCC) Mixed hyperlipidemia Type 2 diabetes mellitus without complication, without long-term current use of insulin (CMS/HCC) Overweight (BMI 25.0-29.9) Overweight Screening for colon cancer Special screening for malignant neoplasms, colon Routine general medical examination at health care facility Routine general medical examination at a [facility] Type 2 diabetes mellitus without complication, without long-term current use of insulin (CMS/HCC)- Primary Overweight (BMI 25.0-29.9) Overweight Primary hypertension (CMS/HCC) Unspecified essential hypertension Type 2 diabetes mellitus without complication, without long-term current use of insulin (CMS/HCC)- Primary Primary hypertension (CMS/HCC) Unspecified essential hypertension Overweight (BMI 25.0-29.9) Overweight Mixed hyperlipidemia (CMS/HCC) Mixed hyperlipidemia documented in this encounter [facility]* Diagnosis Type 2 diabetes mellitus without complication, without long-term current use of insulin (CMS/HCC) Mixed hyperlipidemia (CMS/HCC) Mixed hyperlipidemia documented in this encounter [facility]* Diagnosis Primary hypertension (CMS/HCC) Unspecified essential hypertension Type 2 diabetes mellitus without complication, without long-term current use of insulin (CMS/HCC) documented in this encounter [facility]* Diagnosis Type 2 diabetes mellitus without complication, without long-term current use of insulin (CMS/HCC) documented in this encounter [facility]* Diagnosis Primary hypertension (CMS/HCC) Unspecified essential hypertension documented in this encounter [facility]* Diagnosis Type 2 diabetes mellitus without complication, without long-term current use of insulin (CMS/HCC)- Primary Overweight (BMI 25.0-29.9) Overweight Primary hypertension (CMS/HCC) Unspecified essential hypertension documented in this encounter [facility]* Diagnosis Type 2 diabetes mellitus without complication, without long-term current use of insulin (CMS/HCC) Mixed hyperlipidemia ([facility]) Mixed hyperlipidemia documented in this encounter [facility] Summary Purpose Family History No Family History Records Found Advance Directives No Advanced Directives Records Found Additional Source Comments Reason for Visit (unrecogniz ed section and content) Reason Onset Date Comments Med Refill 07/07/2024 Reason Comments Med Refill Reason Comments Diabetes Care Teams (unrecognized sec tion and content) Field Training Manager Relationship Specialty Start Date End Date Ruben Ramirez MD [address] [place] [phone] PCP - General Family Medicine 10/30/23 Cecelia Porras NP [address] [place] [phone] Nurse Practitioner Family Medicine 10/30/23 Field Training Manager Relationship Specialty Start Date End Date Ruben Ramirez MD [address] [place] [phone] PCP - General Family Medicine 10/30/23 Cecelia Porras NP [address] [place] [phone] Nurse Practitioner Family Medicine 10/30/23 Field Training Manager Relationship Specialty Start Date End Date Ruben Ramirez MD [address] [place] [phone] PCP - General Family Medicine 10/30/23 Cecelia Porras NP [address] [place] [phone] Nurse Practitioner Family Medicine 10/30/23 Field Training Manager Relationship Specialty Start Date End Date Ruben Ramirez MD [address] [place] [phone] PCP - General Family Medicine 10/30/23 Cecelia Porras NP [address] [place] [address] Nurse Practitioner Family Medicine 10/30/23 Field Training Manager Relationship Specialty Start Date End Date Ruben Ramirez MD [address] [place] [phone] PCP - General Family Medicine 10/30/23 Cecelia Porras NP [address] [place] [phone] Nurse Practitioner Family Medicine 10/30/23 Field Training Manager Relationship Specialty Start Date End Date Ruben Ramirez MD [address] [place] [phone] PCP - General Family Medicine 10/30/23 Cecelia Porras NP [address] [place] [phone] Nurse Practitioner Family Medicine 10/30/23 Field Training Manager Relationship Specialty Start Date End Date Ruben Ramirez MD [address] [place] [phone] PCP - General Family Medicine 10/30/23 Cecelia Porras NP [address] [place] [phone] Nurse Practitioner Family Medicine 10/30/23 Field Training Manager Relationship Specialty Start Date End Date Ruben Ramirez MD [address] [place] [phone] PCP - General Family Medicine 10/30/23 Cecelia Porras NP [address] [place] [phone] Nurse Practitioner Family Medicine 10/30/23 INFORMATION SOURCE (unrecogn ized section and content) DATE CREATED AUTHOR 08/12/2024 [facility] FOR RECORDS PERTAINING TO PATIENTS WHO ARE OR HAVE BEEN ENROLLED IN A CHEMICAL DEPENDENCY/SUBSTANCEABUSE PROGRAM, SOME INFORMATION MAY BE OMITTED. This clinical summary was aggregated from multiple sources. Caution should be exercised in using it in the provision of clinical care. This summary normalizes information from multiple sources, and as a consequence, information in this document may materially change the coding, format and clinical context of patient data. In addition, data may be omitted in some cases. CLINICAL DECISIONS SHOULD BE BASED ON THE PRIMARY CLINICAL RECORDS. [facility] [employer] provides no warranty or guarantee of the accuracy or completeness of information in this document.
[2024-11-02 16:54] LABS: Estimated Average Glucose 126 mg/dL
== END 2024-11-02 16:04 | disposition home or self-care (01) ==
LOC: LAB 16:05
PROVIDERS: PCP Nurse Practitioner; Visit Provider Nurse Practitioner
DX: E11.9 Type 2 diabetes mellitus without complications (principal)
CPT/HCPCS: 36415; 83036